=== PATIENT | female | born 1995 | race Caucasian/White ===

== ENCOUNTER 2017-08-03 18:16 | Emergency (ER) | payer BC ==
[2017-08-03] MEDS ORDERED: Ondansetron INJ* 2 MG/ML VIAL IV ONE (22:05)
[2017-08-03] MEDS ORDERED: Morphine INJ* 4 MG/ML 1 ML CARPUJECT IV ONE (22:05)
[2017-08-03 22:28] LABS: Hematocrit 40 % (35-47); Hemoglobin 13.5 g/dl (12.0-16.0); Mean Corpuscular HGB Conc 33 g/dl (31-36); Mean Corpuscular Hemoglobin 29 pg (27-31); Mean Corpuscular Volume 87 fL (80-97); Mean Platelet Volume 8 um3 (7.4-10.4); Red Blood Count 4.61 10^6/ul (4.0-5.4); Red Cell Distribution Width 13 % (10.5-15); White Blood Count 13.7 10^3/ul (3.5-10.8)
[2017-08-03 22:30] LABS: Albumin 4.4 g/dL (3.2-5.2); BUN/Creatinine Ratio 15.1 (8-20); Calcium 9.3 mg/dL (8.6-10.3); EGFR Non-African American 97.9 (>60); Globulin 2.9 g/dL (2-4); Potassium 3.4 mmol/L (3.5-5.0); Total Bilirubin 0.4 mg/dL (0.2-1.0); Total Protein 7.3 g/dL (6.4-8.9)
[2017-08-03 22:39] LABS: Urine Bacteria Absent (Absent); Urine Bilirubin Negative (Negative); Urine Glucose Negative (Negative); Urine Nitrite Negative (Negative)
[2017-08-03] MEDS ORDERED: cefTRIAXone(*) 1 GM in NS 0.9% 50 ML* 50 ML IVPB ONE (22:51)
[2017-08-03] MEDS ORDERED: NS 0.9% 1000 ML*IV.FLUID IV ONE (23:07)
[2017-08-03] MEDS ORDERED: HYDROcodone/ACETAMIN 5-325 MG* 1 TAB PO ONE (23:38)
[2017-08-04 01:23] VITALS: BP 128/58
--- NOTE | 2017-08-04 07:48 | RAD ---
HISTORY: Right flank pain during COMPARISONS: CT dated February 13, 2016 TECHNIQUE: Multiple transverse and longitudinal ultrasound images were obtained of the right kidney using grayscale and color Doppler imaging. FINDINGS: RIGHT KIDNEY: The right kidney is normal in shape, size, contour, and echogenicity. There is an extra renal pelvis on the right. There is no hydronephrosis or nephrolithiasis. The right kidney measures 13 x 4.2 x 5 cm. LEFT KIDNEY: No images are submitted of the left kidney. BLADDER: No images are submitted of the bladder. AORTA AND IVC: No images are submitted of the vasculature. RETROPERITONEUM: Unremarkable. OTHER: None. IMPRESSION: NO RIGHT HYDRONEPHROSIS OR NEPHROLITHIASIS
--- NOTE | 2017-08-04 07:52 | RAD ---
HISTORY: Right flank pain, , gestational age by dates of 6 weeks and 4 days. COMPARISONS: None relevant TECHNIQUE: Multiple transverse and longitudinal ultrasound images were obtained of the pelvis using grayscale, color Doppler, spectral Doppler imaging and M-Mode Doppler imaging using the endovaginal transducer. FINDINGS: UTERUS: The uterus is normal in shape, size, contour, and echotexture. GESTATION: There is a single live intrauterine gestation. The crown-rump length measures 0.51 cm for a gestational age of 6 weeks, 2 days. The DAVID is March 27, 2018. This is concordant with age by dates.. cardiac motion is detected at a rate of 1:15 beats per minute. Gross movement is not identified. anatomy cannot be assessed secondary to early dates. The amniotic fluid is qualitatively normal. There is a small subchorionic hemorrhage measuring approximately 0.5 x 0.3 x 0.3 cm. CUL-DE-SAC: There is no free fluid within the cul-de-sac. RIGHT OVARY: The right ovary measures 2.9 x 1.4 x 2 cm. The right ovarian waveforms are technically limited and are nondiagnostic. LEFT OVARY: The left ovary measures 4 x 2.7 x 3.2 cm. A corpus luteum is noted. Normal arterial and venous waveforms are identifiable within the ovary on spectral Doppler imaging. BLADDER: The bladder is not well visualized. IMPRESSION: 1. SINGLE LIVE INTRAUTERINE GESTATION AT 6 WEEKS AND 2 DAYS BY CROWN-RUMP LENGTH. 2. SMALL SUBCHORIONIC HEMORRHAGE. 3. NO SONOGRAPHIC FEATURES OF TORSION. PLEASE NOTE THAT PARTIAL OR INTERMITTENT TORSION MAY BE SONOGRAPHICALLY NORMAL.
--- NOTE | 2017-08-06 12:15 | ED ---
Mohan Arguello Thomas, scribed for Tab Medrano MD on 08/03/17 at 2217 . Back Pain - HPI Summary HPI Summary: The patient is a 22 y/o F who is 6/7 weeks and c/o back pain that began this AM and has worsened throughout the day. The pain radiates to her lower abdomen. She rates the pain 10/10. She has a Hx of kidney stones and herniated discs. She has a recent Hx of miscarriage of a previous at 4 -5 weeks. She has six positive home tests. She additionally c/o clear watery vaginal discharge and chills. She denies vaginal bleeding, dysuria, and constipation. She has not yet had an ultrasound performed for her current . PMHx: previously healthy. PSHx: appendectomy. SHx: no smoking, no alcohol use. LNMP 06/18/17. She is accompanied by her . - History of Current Complaint Chief Complaint: EDAbdPain Stated Complaint: BACK/ABD PAIN,6 1/2 WKS PREG Time Seen by Provider: 08/03/17 21:56 Hx Obtained From: Patient, Family/Rehabilitation Consultant - is present Hx Last Menstrual Period: 06/18/17 Onset/Duration: Lasting Hours - onset this AM, Still Present Timing: Constant Severity Currently: Severe Pain Intensity: 10 Pain Scale Used: 0-10 Numeric Aggravating Symptom(s): Nothing Alleviating Symptom(s): Nothing Associated Signs And Symptoms: Positive: Abdominal Pain, Other - Clear watery vaginal discharge, chills; NEGATIVE: vaginal bleeding, dysuria, constipation. Negative: Fever - Allergies/Home Medications Allergies/Adverse Reactions: Allergies Allergy/AdvReac Type Severity Reaction Status Date / Time Bee Venom Allergy Swelling Verified 05/01/16 13:58 Of Face,Lips,& Throat Latex Allergy rash, Verified 05/01/16 13:58 swelling Pineapple Allergy Swelling Verified 05/01/16 13:58 mushrooms Allergy Swelling Uncoded 05/01/16 13:58 walnuts Allergy Swelling Uncoded 05/01/16 13:58 PMH/Surg Hx/FS Hx/Imm Hx Previously Healthy: No Endocrine/Hematology History: Denies: Hx Diabetes, Hx Thyroid Disease Cardiovascular History: Denies: Hx Congestive Heart Failure, Hx Hypertension, Hx Pacemaker/ICD Respiratory History: Denies: Hx Asthma, Hx Chronic Obstructive Pulmonary Disease (COPD) GI History: Denies: Hx Ulcer History: Reports: Hx Kidney Infection Denies: Hx Renal Disease Sensory History: Denies: Hx Hearing Aid Neurological History: Reports: Hx Migraine Psychiatric History: Reports: Hx Anxiety, Hx Panic Disorder - PANIC ATTACKS - Surgical History Surgery Procedure, Year, and Place: APPENDIX- in 7th grade Infectious Disease History: No Infectious Disease History: Denies: Hx Clostridium Difficile, Hx Hepatitis, Hx Human Immunodeficiency Virus (HIV), Hx of Known/Suspected MRSA, Hx Shingles, Hx Tuberculosis, History Other Infectious Disease, Traveled Outside the [place] in Last 30 Days - Family History Known Family History: Positive: Other - Unsure whether or not there is a FHx of tubal pregnancies - Social History Lives: With Family Alcohol Use: None Hx Substance Use: No Substance Use Type: Reports: None Hx Tobacco Use: No Smoking Status (MU): Never Smoked Tobacco Review of Systems Positive: Chills. Negative: Fever Negative: Erythema - eyes Negative: Sore Throat Negative: Chest Pain Negative: Shortness Of Breath, Cough Negative: Abdominal Pain, Vomiting, Nausea, Other - NEGATIVE: constipation Positive: discharge - clear watery, other - Back pain onset this AM with radiation to lower abdomen; NEGATIVE: vaginal bleeding. Negative: dysuria, hematuria Negative: Myalgia, Edema Negative: Rash Neurological: Other - NEGATIVE: dizziness All Other Systems Reviewed And Are Negative: Yes Physical Exam - Summary Physical Exam Summary: Constitutional: Well-developed, Well-nourished, Alert. (-) Distressed Skin: Warm, Dry HENT: Normocephalic; Atraumatic Eyes: Conjunctiva normal Neck: Musculoskeletal ROM normal neck. (-) JVD, (-) Stridor, (-) Tracheal deviation Cardio: Rhythm regular, rate normal, Heart sounds normal; Intact distal pulses; The pedal pulses are 2+ and symmetric. Radial pulses are 2+ and symmetric. (-) Murmur Pulmonary/Chest wall: Effort normal. (-) Respiratory distress, (-) Wheezes, (-) Rales Abd: There is excuisite R CVA tenderness and R adnexal tenderness. Soft, (-) Distension, (-) Guarding, (-) Rebound Musculoskeletal: (-) Edema Lymph: (-) Cervical adenopathy Neuro: Alert, Oriented x3 Psych: Mood and affect Normal Triage Information Reviewed: Yes Vital Signs On Initial Exam: Initial Vitals Temp Pulse Resp BP Pulse Ox 97.1 F 84 20 145/68 100 08/03/17 18:32 08/03/17 18:32 08/03/17 18:32 08/03/17 18:32 08/03/17 18:32 Vital Signs Reviewed: Yes Diagnostics - Vital Signs Vital Signs Temp Pulse Resp BP Pulse Ox 08/03/17 20:29 97.6 F 74 16 148/70 100 08/03/17 18:32 97.1 F 84 20 145/68 100 - Laboratory Result Diagrams: 08/03/17 22:15 08/03/17 22:10 Lab Statement: Any lab studies that have been ordered have been reviewed, and results considered in the medical decision making process. - Additional Comments Diagnostic Additional Comments: US Renal. Interpreted by radiologist. Impression: normal US of the kidney. ED physician has reviewed this report and agrees. US . Interpreted by radiologist. Impression: live intrauterine gestation at 6 weeks, 2 days. ED physician has reviewed this report and agrees. Back Pain Course/Dx - Course Assessment/Plan: The patient is a 22 y/o F who is 6/7 weeks and c/o back pain that began this AM and has worsened throughout the day. The pain radiates to her lower abdomen. She rates the pain 10/10. She has a Hx of kidney stones and herniated discs. She has a recent Hx of miscarriage of a previous at 4-5 weeks. She has six positive home tests. She additionally c/o clear watery vaginal discharge and chills. She denies vaginal bleeding, dysuria, and constipation. She has not yet had an ultrasound performed for her current . PMHx: previously healthy. PSHx: appendectomy. SHx: no smoking, no alcohol use. LNMP 06/18/17. She is accompanied by her . The patient had excuisit R CVA tenderness and mild R adnexal tenderness. In the ED course the patient was given [place], Morhpine, Zofran, IV fluids, and Rocephin. US renal and US are negative for acute disease. I offered the patient IV Abx and admission to the hospital, although she would prefer to go home and be given oral Abx. I consulted with YEE Farfan, says that the patient can have follow up at the office tomorrow. The patikarmen is stable and will be discharged home with follow up tomorrow by YEE. She is diagnosed with pyelonephritis. She is stable. - Diagnoses Provider Diagnoses: Pyelonephritis - Provider Notifications Discussed Care Of Patient With: Dale Vargas Time Discussed With Above Provider: 23:50 Instructed by Provider To: Other - I consulted with YEE Farfan, regarding patient care and follow up. Discharge - Discharge Plan Condition: Stable Disposition: HOME Prescriptions: Cephalexin CAP* [Keflex CAP*] 500 mg PO QID #40 cap Patient Education Materials: Kidney Infection (ED) Referrals: Dale Vargas MD [Medical Doctor] - 1 Day Additional Instructions: Follow up at Dr. Vargas's office tomorrow. You need to call the office at 08:00 to follow up. Return to the emergency department for any new or worsening symptoms. The documentation as recorded by the Mohan souza Thomas accurately reflects the service I personally performed and the decisions made by , Tab Medrano MD.
--- NOTE | 2017-08-07 09:00 | PN ---
Progress Note - Progress Note Date of Service: 08/03/17 Note: 75,000-100,000 of e. coli growth on preliminary results treated for pyelonephritis with keflex. will wait for final culture sensitivity. no further action required.
== END 2017-08-04 01:23 | disposition home or self-care (01) ==
LOC: ED 18:16
DX: N12 Tubulo-interstitial nephritis, not specified as acute or chronic (principal); N89.8 Other specified noninflammatory disorders of vagina; R10.9 Unspecified abdominal pain; M54.9 Dorsalgia, unspecified; Z34.91 Encounter for supervision of normal pregnancy, unspecified, first trimester
CPT/HCPCS: 36415; 76775; 76815; 80053; 81003; 81015; 83690; 84702; 85025; 86141; 87077; 87086; 87186; 96374; 96375; 99283; J0696; J2270; J2405

== ENCOUNTER 2017-08-16 17:40 | Emergency (ER) | payer BC ==
--- NOTE | 2017-08-16 18:42 | UC ---
Complaint Female HPI - HPI Summary HPI Summary: 22 year old female who is 8 weeks . presents with lower back pain. - History Of Current Complaint Chief Complaint: UCGU Stated Complaint: BACK PAIN, FREQUENT URINATION Time Seen by Provider: 08/16/17 18:42 Hx Obtained From: Patient Hx Last Menstrual Period: 06/18/17 Onset/Duration: Sudden Onset Severity Initially: Moderate Severity Currently: Moderate Pain Scale Used: 0-10 Numeric - 5 - Allergies/Home Medications Allergies/Adverse Reactions: Allergies Allergy/AdvReac Type Severity Reaction Status Date / Time Bee Venom Allergy Swelling Verified 08/16/17 18:33 Of Face,Lips,& Throat Latex Allergy rash, Verified 08/16/17 18:33 swelling Pineapple Allergy Swelling Verified 08/16/17 18:33 mushrooms Allergy Swelling Uncoded 08/16/17 18:33 walnuts Allergy Swelling Uncoded 08/16/17 18:33 PMH/Surg Hx/FS Hx/Imm Hx Previously Healthy: Yes - Surgical History Surgical History: Yes Surgery Procedure, Year, and Place: APPENDIX- in 7th grade - Family History Known Family History: Positive: Unknown, Other - Unsure whether or not there is a FHx of tubal pregnancies - Social History Alcohol Use: None Substance Use Type: None Smoking Status (MU): Never Smoked Tobacco Review of Systems Constitutional: Negative Skin: Negative Eyes: Negative ENT: Negative Respiratory: Negative Cardiovascular: Negative Gastrointestinal: Negative Genitourinary: Negative Motor: Negative Neurovascular: Negative Musculoskeletal: Other: - lower back pain Neurological: Negative Psychological: Negative All Other Systems Reviewed And Are Negative: Yes Physical Exam Triage Information Reviewed: Yes Vital Signs: Initial Vital Signs Temp 36.2 C 08/16/17 18:30 Pulse 95 08/16/17 18:30 Resp 12 08/16/17 18:30 BP 133/74 08/16/17 18:30 Pulse Ox 100 08/16/17 18:30 Vital Signs Reviewed: Yes Eye Exam: Normal ENT Exam: Normal Dental Exam: Normal Neck exam: Normal Neck: Positive: 1 Respiratory Exam: Normal Cardiovascular Exam: Normal Abdominal Exam: Normal Musculoskeletal: Positive: Other: - lower back pain Neurological Exam: Normal Psychological Exam: Normal Skin Exam: Normal Complaint Female Dx - Differential Dx/Diagnosis Provider Diagnoses: lower back pain Discharge - Discharge Plan Condition: Stable Disposition: HOME Patient Education Materials: Low Back Strain (ED), Acute Low Back Pain (ED) Referrals: No Primary Care Phys,NOPCP [Primary Care Provider] -
[2017-08-16 20:07] VITALS: BP 114/68
== END 2017-08-16 20:14 | disposition home or self-care (01) ==
LOC: UCEAST 17:40
DX: O26.891 Other specified pregnancy related conditions, first trimester (principal); M54.5 Low back pain; R35.0 Frequency of micturition; Z3A.08 8 weeks gestation of pregnancy
CPT/HCPCS: 81003; 84702; 99212; G0463

== ENCOUNTER 2017-12-16 05:12 | Emergency (ER) | payer BC ==
[2017-12-16] MEDS ORDERED: Ondansetron ODT TAB* 4 MG PO ONE (05:27)
[2017-12-16] MEDS ORDERED: Hyoscyamine TAB* 0.125 MG PO ONE (05:31)
[2017-12-16] MEDS ORDERED: Ondansetron INJ* 2 MG/ML VIAL IV ONE (06:04)
[2017-12-16] MEDS ORDERED: diPHENhydraMINE IV* 50 MG/ML 1 ml VIAL (BENADRYL) IV ONE (06:04)
[2017-12-16] MEDS ORDERED: NS 0.9% 1000 ML* 1,000 ML IV ONE ×3 (06:04→06:51)
[2017-12-16] MEDS ORDERED: Dextrose 50% Syringe 50 ML* 25 GM/50 ML SYRINGE IV PUSH ONE (06:39)
[2017-12-16 06:52] LABS: ABS Basophils 0 10^3/ul (0-0.2); ABS Eosinophils 0.1 10^3/ul (0-0.6); ABS Lymphocytes 0.8 10^3/ul (1.0-4.8); ABS Monocytes 0.5 10^3/ul (0-0.8); ABS Neutrophils 13.1 10^3/ul (1.5-7.7); ABS Nucleated RBC 0 10^3/ul; Eosinophil % 0.7 % (0-6); Hematocrit 39 % (35-47); Hemoglobin 13.1 g/dl (12.0-16.0); Lymphocyte % 5.2 % (25-47); Mean Corpuscular HGB Conc 34 g/dl (31-36); Mean Corpuscular Hemoglobin 30 pg (27-31); Mean Corpuscular Volume 89 fL (80-97); Mean Platelet Volume 9 um3 (7.4-10.4); Nucleated Red Blood Cells % 0; Platelet Count 225 10^3/ul (150-450); Red Cell Distribution Width 13 % (10.5-15); White Blood Count 14.5 10^3/ul (3.5-10.8)
[2017-12-16 06:54] VITALS: BP 120/76
--- NOTE | 2017-12-16 07:06 | ED ---
Wilfrid Arguello Jennifer, scribed for Matt Gamez MD on 12/16/17 at 0541 . Abdominal Pain/Female - HPI Summary HPI Summary: The patient is a 29 year old female who presents with non-stop vomiting after christina food poisoning from a steak burrito at 19:00. She has vomited about 7-8 times since it began. She feels like she is going to have diarrhea but has not had it yet. She complains of a cough and subjective fever. Her stomach feels like a rock and there is stabbing and cramping pain. The patient is 26 weeks with her third child. - History of Current Complaint Chief Complaint: EDAbdPain Stated Complaint: VOMITING/ABD PAIN Time Seen by Provider: 12/16/17 05:22 Hx Obtained From: Patient Hx Last Menstrual Period: 06/18/17 Onset/Duration: Gradual Onset, Lasting Hours - since 19:00 last night, Still Present Timing: Constant Severity Initially: Severe Severity Currently: Severe Pain Intensity: 9 Pain Scale Used: 0-10 Numeric Location: Diffuse Radiates: No Character: Cramping, Other: - Stabbing, feels like a "rock" Aggravating Factor(s): Nothing Alleviating Factor(s): Nothing Associated Signs and Symptoms: Positive: Other: - Vomiting, feels like she's going to have diarrhea, cough, subjective fever Allergies/Adverse Reactions: Allergies Allergy/AdvReac Type Severity Reaction Status Date / Time MS Bee Venom [Bee Venom] Allergy Swelling Verified 08/28/17 08:40 Of Face,Lips,& Throat MS Latex [Latex] Allergy rash, Verified 08/28/17 08:40 swelling MS Pineapple [Pineapple] Allergy Swelling Verified 08/28/17 08:40 mushrooms Allergy Swelling Uncoded 08/28/17 08:40 walnuts Allergy Swelling Uncoded 08/28/17 08:40 PMH/Surg Hx/FS Hx/Imm Hx Endocrine/Hematology History: Denies: Hx Diabetes, Hx Thyroid Disease Cardiovascular History: Denies: Hx Congestive Heart Failure, Hx Hypertension, Hx Pacemaker/ICD Respiratory History: Denies: Hx Asthma, Hx Chronic Obstructive Pulmonary Disease (COPD) GI History: Denies: Hx Ulcer History: Reports: Hx Kidney Infection Denies: Hx Renal Disease Sensory History: Denies: Hx Hearing Aid Neurological History: Reports: Hx Migraine Psychiatric History: Reports: Hx Anxiety, Hx Panic Disorder - PANIC ATTACKS - Surgical History Surgery Procedure, Year, and Place: APPENDIX- in 7th grade Infectious Disease History: No Infectious Disease History: Denies: Hx Clostridium Difficile, Hx Hepatitis, Hx Human Immunodeficiency Virus (HIV), Hx of Known/Suspected MRSA, Hx Shingles, Hx Tuberculosis, History Other Infectious Disease, Traveled Outside the [place] in Last 30 Days - Family History Known Family History: Positive: Unknown, Other - Unsure whether or not there is a FHx of tubal pregnancies - Social History Alcohol Use: None Hx Substance Use: No Substance Use Type: Reports: None Hx Tobacco Use: No Smoking Status (MU): Never Smoked Tobacco Review of Systems Positive: Fever Positive: Abdominal Pain, Vomiting, Diarrhea - feels like she's going to have it All Other Systems Reviewed And Are Negative: Yes Physical Exam - Summary Physical Exam Summary: Appearance: Well appearing, no pain distress Skin: warm, dry, reflects adequate perfusion Head/face: normal Eyes: EOMI, BETTY ENT: normal Neck: supple, non-tender Respiratory: CTA, breath sounds present Cardiovascular: RRR, pulses symmetrical Abdomen: non-tender, soft. Fundus is palpable 5 cm above the umbilicus. Bowel: hypoactive bowel sounds. Musculoskeletal: normal, strength/ROM intact Neuro: normal, sensory motor intact, A&Ox3 Triage Information Reviewed: Yes Vital Signs On Initial Exam: Initial Vitals Temp Pulse Resp BP Pulse Ox 96.6 F 105 18 136/75 98 12/16/17 05:16 12/16/17 05:16 12/16/17 05:16 12/16/17 05:16 12/16/17 05:16 Vital Signs Reviewed: Yes Diagnostics - Vital Signs Vital Signs Temp Pulse Resp BP Pulse Ox 12/16/17 05:16 96.6 F 105 18 136/75 98 - Laboratory Lab Results: Lab Results 12/16/17 12/16/17 Range/Units 06:30 06:36 WBC 14.5 H (3.5-10.8) 10^3/ul RBC 4.40 (4.0-5.4) 10^6/ul Hgb 13.1 (12.0-16.0) g/dl Hct 39 (35-47) % MCV 89 (80-97) fL MCH 30 (27-31) pg MCHC 34 (31-36) g/dl RDW 13 (10.5-15) % Plt Count 225 (150-450) 10^3/ul MPV 9 (7.4-10.4) um3 Neut % (Auto) 90.2 H (38-83) % Lymph % (Auto) 5.2 L (25-47) % [place] % (Auto) 3.8 (1-9) % Eos % (Auto) 0.7 (0-6) % Baso % (Auto) 0.1 (0-2) % Absolute Neuts (auto) 13.1 H (1.5-7.7) 10^3/ul Absolute Lymphs (auto) 0.8 L (1.0-4.8) 10^3/ul Absolute Monos (auto) 0.5 (0-0.8) 10^3/ul Absolute Eos (auto) 0.1 (0-0.6) 10^3/ul Absolute Basos (auto) 0 (0-0.2) 10^3/ul Absolute Nucleated RBC 0 10^3/ul Nucleated RBC % 0 POC Glucose (mg/dL) 87 (70-100) mg/dL Result Diagrams: 18 06:36 18 06:36 Lab Statement: Any lab studies that have been ordered have been reviewed, and results considered in the medical decision making process. Re-Evaluation - Re-Evaluation First Eval Re-Evaluation Time: 06:29 Change: Unchanged Comment: Patient placed on monitor. Decreased variability of heart tones but no contractions. Patient given Benadryl. Second Eval Re-Evaluation Time: 06:55 Change: Improved Comment: The patient feels much better. The baby's variability is still questionable. Abdominal Pain Fem Course/Dx - Course Course Of Treatment: Pt and her have n/v and abd cramping after sharing burrito. Sx were abrupt and simultaneous for the both of them. Pt is 26wk preg. Visualized with bedside US, decreased activity. L&D came and monitored pt. NO contractions but HT variability is decreased. IV placed, labs drawn and pt given IV meds after she vomited during admin of ODT meds. Sugar added to IV. Had given benadryl IV prior to being aware of decreased variability. Pt will be cont to hydrated. Call to OB after 7a. Case discussed and signed out to Dr. Waddell. - Diagnoses Provider Diagnoses: Food poisoning, Second trimester , heart rate nonreactive Discharge - Discharge Plan Condition: Guarded Disposition: OTHER Discharge Disposition Comment: Sign out to Dr. Fang pending variability of fetus heart. Referrals: No Primary Care Phys,NOPCP [Primary Care Provider] - The documentation as recorded by the Wilfrid souza Jennifer accurately reflects the service I personally performed and the decisions made by me, Matt Gamez MD.
--- NOTE | 2017-12-16 13:39 | ED ---
Syed Arguello Julia, scribed for Zach Fang MD on 12/16/17 at 0722 . Progress - Progress Note Progress Note: This patient is signed out from Dr. Gamez at shift change, awaiting to monitor heart rate and disposition.. The patient has nausea and cramping as of reevaluation at 710am. She is being hydrated. heart rate is 130s. There is question of variability brought up by Dr Gamez on the monitor strip. I have contacted Dr Parker the OB /[employer]SULTANT rn on site for the group and he states at 26 weeks there is not to be expected variability. He states he will review the strips. He recommends continued symptom management at this point. And IV hydration. 800am Dr Parker present here in the ER and went and saw the patient and reviewed the monitor strips. He feels as long as the patient can keep clear liquids down she can go home. The patient has been able to tolerate clears at this point and she wants to go home now. Dr Parker recommends Zofran ODT for nausea medicine. Re-Evaluation - Re-Evaluation First Eval Re-Evaluation Time: 06:29 Change: Unchanged Comment: Patient placed on monitor. Decreased variability of heart tones but no contractions. Patient given Benadryl. Second Eval Re-Evaluation Time: 06:55 Change: Improved Comment: The patient feels much better. The baby's variability is still questionable. Course/Dx - Course Course Of Treatment: Pt and her have n/v and abd cramping after sharing burrito. Sx were abrupt and simultaneous for the both of them. Pt is 26wk preg. Visualized with bedside US, decreased activity. L&D came and monitored pt. NO contractions but HT variability is decreased. IV placed, labs drawn and pt given IV meds after she vomited during admin of ODT meds. Sugar added to IV. Had given benadryl IV prior to being aware of decreased variability. Pt will be cont to hydrated. Call to OB after 7a. Case discussed and signed out to Dr. Waddell. - Diagnoses Provider Diagnoses: Food poisoning, Second trimester , heart rate nonreactive The documentation as recorded by the Syed souza Julia accurately reflects the service I personally performed and the decisions made by , Zach Fang MD.
== END 2017-12-16 08:41 | disposition home or self-care (01) ==
LOC: ED 05:12
DX: O26.892 Other specified pregnancy related conditions, second trimester (principal); T62.8X1A Toxic effect of other specified noxious substances eaten as food, accidental (unintentional), initial encounter; R11.10 Vomiting, unspecified; O36.8320 Maternal care for abnormalities of the fetal heart rate or rhythm, second trimester, not applicable or unspecified; Z3A.26 26 weeks gestation of pregnancy
CPT/HCPCS: 36415; 80053; 85025; 96361; 96374; 96375; 99283; A9270-GY; J1200; J2405

== ENCOUNTER 2018-03-30 07:22 | Inpatient (IN) | payer BC, MEDICAID ==
[2018-03-30] MEDS ORDERED: Oxytocin in LR* 20 UNITS/1,000 ML BAG IVPB SCH ×2 (08:00→16:00)
[2018-03-30 08:37] LABS: ABS Basophils 0 10^3/ul (0-0.2); ABS Eosinophils 0.1 10^3/ul (0-0.6); ABS Lymphocytes 1.3 10^3/ul (1.0-4.8); ABS Monocytes 0.3 10^3/ul (0-0.8); ABS Neutrophils 5.5 10^3/ul (1.5-7.7); ABS Nucleated RBC 0 10^3/ul; Hematocrit 34 % (35-47); Hemoglobin 11.2 g/dl (12.0-16.0); Lymphocyte % 18.4 % (25-47); Mean Corpuscular HGB Conc 33 g/dl (31-36); Mean Corpuscular Hemoglobin 28 pg (27-31); Mean Corpuscular Volume 84 fL (80-97); Mean Platelet Volume 8.9 um3 (7.4-10.4); Nucleated Red Blood Cells % 0.1; Platelet Count 233 10^3/ul (150-450); Red Cell Distribution Width 14 % (10.5-15); White Blood Count 7.3 10^3/ul (3.5-10.8)
--- NOTE | 2018-03-30 10:52 | HP ---
General Information - General Information Maternal Age: 23 Grav: 3 Para: 2 SAB: 0 IEA: 0 Estimated Due Date: 03/25/18 Determined By: LMP Gestational Age in Weeks and Days: 40 Weeks and 5 Days Maternal Blood Type and Rh: A Positive - Results this Serology/RPR Result: Non-Reactive Rubella Result: Immune HBsAg Result: Negative HIV Result: Negative GBS Culture Result: Negative Past Medical History Delivery History: Hx Uncomplicated Vaginal Delivery Pertinent Past Medical History: See Records Past Medical History Comment: obesity Pertinent Past Surgical History: None Pertinent Family History: See Records - Antepartal Records Antepartal Records: Reviewed, Uncomplicated Review of Systems Constitutional: Comfortable Gastrointestinal: No Nausea/Vomiting Genitourinary: No Bleeding, No Leaking Fluid Musculoskeletal: No Complaint Neurological: No Headache Movement: Normal Exam Allergies/Adverse Reactions: Allergies bee venom protein (honey bee) Allergy (Verified 12/16/17 08:12) Swelling Of Face,Lips,& Throat latex Allergy (Verified 12/16/17 08:12) Rash mushroom Allergy (Verified 12/16/17 08:55) Swelling pineapple Allergy (Verified 12/16/17 08:12) Swelling walnut Allergy (Verified 12/16/17 08:55) Swelling Lab Values - Entire Visit: Laboratory Tests 03/30/18 03/30/18 08:15 08:15 WBC 7.3 RBC 4.00 Hgb 11.2 L Hct 34 L MCV 84 MCH 28 MCHC 33 RDW 14 Plt Count 233 MPV 8.9 Neut % (Auto) 75.7 Lymph % (Auto) 18.4 L [place] % (Auto) 4.4 Eos % (Auto) 1.0 Baso % (Auto) 0.5 Absolute Neuts (auto) 5.5 Absolute Lymphs (auto) 1.3 Absolute Monos (auto) 0.3 Absolute Eos (auto) 0.1 Absolute Basos (auto) 0 Absolute Nucleated RBC 0 Nucleated RBC % 0.1 Blood Type A Positive Antibody Screen Negative - Measurements Height: 5 ft 9 in Weight: 252 lb Weight in lbs: 252 Body Mass Index (BMI): 37.2 Pre- Weight: 240 lb Weight Gained This : 12 lbs and 0 ozs Targeted Exam Findings See L&D Outpatient Visit Provider Note for Findings: N/A Cervical Exam: 1cm Effacement: 70% Station: -2 Presenting Part: Vertex Membrane Status: AROM EFM Findings - External Monitor Findings Baseline Heart Rate: 135 External Monitor Findings: Accelerations Present, Variability Moderate Contractions: None Assessment/Plan - Reason for Visit Reason for Visit: 40 + weeks for induction for post dates - Plan Plan: Induction
[2018-03-30] MEDS ORDERED: OBEPIDURAL* 250 ML EPIDURAL ONE (13:59)
[2018-03-30] MEDS ORDERED: Phenylephrine IV* 40 MCG/ML 10 ML SYRINGE IV PUSH PRN ×2 (14:52)
[2018-03-30] MEDS ORDERED: Sodium Citrate/Citric Acid* 15 ML UDC PO PRN (14:52)
[2018-03-30] MEDS ORDERED: OBEPIDURAL* 250 ML EPIDURAL SCH (15:00)
[2018-03-30] MEDS ORDERED: Acetaminophen TAB* 325 MG PO PRN (15:27)
[2018-03-30] MEDS ORDERED: Glycerin ADULT SUPP PR PRN (15:27)
[2018-03-30] MEDS ORDERED: Dibucaine 1% 28.35 GM TUBE PR PRN (15:27)
[2018-03-30] MEDS ORDERED: Witch Hazel PAD* JAR TOPICAL PRN (15:27)
[2018-03-30] MEDS ORDERED: Simethicone TAB* 80 MG TAB.CHEW PO SCH (17:30)
[2018-03-30] MEDS: Docusate CAP* 100 MG PO SCH (22:35)
[2018-03-31] MEDS: Ibuprofen TAB* 600 MG PO PRN ×2 (03:47→16:38)
[2018-03-31 06:31] LABS: ABS Basophils 0.1 10^3/ul (0-0.2); ABS Eosinophils 0.1 10^3/ul (0-0.6); ABS Lymphocytes 1.7 10^3/ul (1.0-4.8); ABS Monocytes 0.4 10^3/ul (0-0.8); ABS Neutrophils 8.2 10^3/ul (1.5-7.7); ABS Nucleated RBC 0 10^3/ul; Eosinophil % 1.2 % (0-6); Hematocrit 32 % (35-47); Hemoglobin 10.6 g/dl (12.0-16.0); Lymphocyte % 16.4 % (25-47); Mean Corpuscular HGB Conc 33 g/dl (31-36); Mean Corpuscular Hemoglobin 28 pg (27-31); Mean Corpuscular Volume 84 fL (80-97); Mean Platelet Volume 8.9 um3 (7.4-10.4); Nucleated Red Blood Cells % 0.1; Platelet Count 195 10^3/ul (150-450); Red Blood Count 3.83 10^6/ul (4.0-5.4); Red Cell Distribution Width 14 % (10.5-15); White Blood Count 10.6 10^3/ul (3.5-10.8)
[2018-03-31 07:40] VITALS: BP 132/67
[2018-03-31] MEDS ORDERED: Ferrous Gluconate TAB* 324 MG TAB PO SCH (09:00)
[2018-03-31] MEDS: Docusate CAP* 100 MG PO SCH (16:37)
== END 2018-03-31 18:25 | disposition home or self-care (01) | DRG 560 ==
LOC: MCHOBOUT 07:22 → MCHOB 07:48
PROVIDERS: ADMIT Obstetrics & Gynecology; ATTEND Obstetrics & Gynecology
PROC: 10907ZC Drainage of Amniotic Fluid, Therapeutic from Products of Conception, Via Natural or Artificial Opening (ICD-10-PCS; principal; 2018-03-30)
PROC: 3E033VJ Introduction of Other Hormone into Peripheral Vein, Percutaneous Approach (ICD-10-PCS; 2018-03-30)
PROC: 10E0XZZ Delivery of Products of Conception, External Approach (ICD-10-PCS; 2018-03-30)
PROC: 4A1HX4Z Monitoring of Products of Conception, Cardiac Electrical Activity, External Approach (ICD-10-PCS; 2018-03-30)
DX: O48.0 Post-term pregnancy (principal); O99.214 Obesity complicating childbirth; O62.3 Precipitate labor; Z3A.40 40 weeks gestation of pregnancy; Z37.0 Single live birth; Z91.030 Bee allergy status; Z91.040 Latex allergy status; Z91.018 Allergy to other foods; Z87.442 Personal history of urinary calculi; Z68.37 Body mass index [BMI] 37.0-37.9, adult
CPT/HCPCS: 36415; 85025; 86850; 86900; 86901; A9270-GY

== ENCOUNTER 2019-07-27 05:00 | Emergency (ER) | payer MEDICAID, OTHER ==
[2019-07-27] MEDS ORDERED: Ibuprofen TAB* 600 MG PO ONE (05:25)
[2019-07-27] MEDS ORDERED: diPHENhydraMINE PO* 25 MG PO ONE (05:25)
--- NOTE | 2019-07-27 05:29 | ED ---
Skin Complaint - HPI Summary HPI Summary: Pt is a 24 y/o F presenting to the ED with a chief complaint of a spider bite. She states she was woken up by the spider biting her around 0430, and it is now stinging and pruritic. She denies SOB, vomiting, diarrhea. - History of Current Complaint Chief Complaint: EDGeneral Time Seen by Provider: 07/27/19 05:13 Stated Complaint: SPIDER BITE PER PT Hx Obtained From: Patient Hx Last Menstrual Period: 06/18/17 Onset/Duration: Started Hours Ago, Still Present Skin Exposure Onset/Duration: Hours Ago Timing: Constant, Lasting Hours Onset Severity: Moderate Current Severity: Moderate Pain Intensity: 7 Pain Scale Used: 0-10 Numeric Skin Location: Arm - R forearm Character: Pruritus, Redness Aggravating Symptom(s): Other: - spider bite Alleviating Symptom(s): Nothing Associated Signs & Symptoms: Rash Related History: Insect Bite/Sting - Allergy/Home Medications Allergies/Adverse Reactions: Allergies Allergy/AdvReac Type Severity Reaction Status Date / Time bee venom protein (honey bee) Allergy Swelling Verified 07/27/19 05:05 Of Face,Lips,& Throat latex Allergy Rash Verified 07/27/19 05:05 mushroom Allergy Swelling Verified 07/27/19 05:05 pineapple Allergy Swelling Verified 07/27/19 05:05 walnut Allergy Swelling Verified 07/27/19 05:05 PMH/Surg Hx/FS Hx/Imm Hx Previously Healthy: Yes Endocrine/Hematology History: Denies: Hx Diabetes, Hx Thyroid Disease Cardiovascular History: Denies: Hx Congestive Heart Failure, Hx Hypertension, Hx Pacemaker/ICD Respiratory History: Denies: Hx Asthma, Hx Chronic Obstructive Pulmonary Disease (COPD) GI History: Denies: Hx Ulcer History: Reports: Hx Kidney Infection Denies: Hx Renal Disease Sensory History: Denies: Hx Hearing Aid Neurological History: Reports: Hx Migraine Psychiatric History: Reports: Hx Anxiety, Hx Panic Disorder - PANIC ATTACKS - Surgical History Surgery Procedure, Year, and Place: APPENDIX- in 7th grade Infectious Disease History: No Infectious Disease History: Denies: Hx Clostridium Difficile, Hx Hepatitis, Hx Human Immunodeficiency Virus (HIV), Hx of Known/Suspected MRSA, Hx Shingles, Hx Tuberculosis, History Other Infectious Disease, Traveled Outside the [place] in Last 30 Days - Family History Known Family History: Positive: Other - Unsure whether or not there is a FHx of tubal pregnancies - Social History Alcohol Use: None Hx Substance Use: No Substance Use Type: Reports: None Hx Tobacco Use: No Smoking Status (MU): Never Smoked Tobacco Review of Systems Negative: Shortness Of Breath Negative: Vomiting, Diarrhea Positive: Other - pruritic, raised area of spider bite All Other Systems Reviewed And Are Negative: Yes Physical Exam - Summary Physical Exam Summary: Constitutional: Well-developed, Well-nourished, Alert. (-) Distressed Skin: Warm, Dry. Small area of raised pruritic rash to R forearm HENT: Normocephalic; Atraumatic Eyes: Conjunctiva normal Neck: Musculoskeletal ROM normal neck. (-) JVD, (-) Stridor, (-) Tracheal deviation Cardio: Rhythm regular, rate normal, Heart sounds normal; Intact distal pulses; Radial pulses are 2+ and symmetric. (-) Murmur Pulmonary/Chest wall: Effort normal. (-) Respiratory distress, (-) Wheezes, (-) Rales Abd: Soft, (-) tenderness, (-) Distension, (-) Guarding, (-) Rebound Musculoskeletal: (-) Edema Lymph: (-) Cervical adenopathy Neuro: Alert, Oriented x3 Psych: Mood and affect Normal Triage Information Reviewed: Yes Vital Signs On Initial Exam: Initial Vitals Temp Pulse Resp BP Pulse Ox 97.0 F 78 16 131/82 99 07/27/19 05:00 07/27/19 05:00 07/27/19 05:00 07/27/19 05:00 07/27/19 05:00 Vital Signs Reviewed: Yes Procedures - Sedation Patient Received Moderate/Deep Sedation with Procedure: No Diagnostics - Vital Signs Vital Signs Temp Pulse Resp BP Pulse Ox 07/27/19 05:00 97.0 F 78 16 131/82 99 - Laboratory Lab Statement: Any lab studies that have been ordered have been reviewed, and results considered in the medical decision making process. Course/Dx - Course Course Of Treatment: Patient is here after a spider bite. Patient has no evidence of anaphylaxis. Patient has a small local reaction to the bite. Patient is treated with Benadryl, ibuprofen, ice. - Diagnoses Provider Diagnoses: Spider bite Discharge ED - Sign-Out/Discharge Documenting (check all that apply): Patient Departure - Discharge Plan Condition: Stable Disposition: HOME Patient Education Materials: Insect Bite or Sting (ED) Referrals: [facility] [Outside] Additional Instructions: Please take Benadryl to alleviate the itching/redness, Ibuprofen for the pain, and you can also ice the area to reduce the inflammation. Come back to the emergency department with any new or worsening symptoms, including fever, vomiting, or diarrhea. - Billing Disposition and Condition Condition: STABLE Disposition: Home - Attestation Statements Document Initiated by Scribe: Yes Documenting Scribe: Heide Victoria Provider For Whom Slime is Documenting (Include Credential): Denys Vazquez MD. Scribe Attestation: Heide Arguello, scribed for Denys Vazquez MD. on 07/27/19 at 0612. Scribe Documentation Reviewed: Yes Provider Attestation: The documentation as recorded by the scribe, Heide Victoria accurately reflects the service I personally performed and the decisions made by , Denys Vazquez MD. Status of Scribe Document: Viewed
[2019-07-27 05:38] VITALS: BP 120/56
== END 2019-07-27 05:30 | disposition home or self-care (01) ==
LOC: ED 05:00
DX: T63.301A Toxic effect of unspecified spider venom, accidental (unintentional), initial encounter (principal); Y92.9 Unspecified place or not applicable; F41.9 Anxiety disorder, unspecified; Z91.040 Latex allergy status
CPT/HCPCS: 99282; A9270-GY

== ENCOUNTER 2019-09-11 09:54 | Emergency (ER) | payer OTHER ==
[2019-09-11 10:30] VITALS: BP 131/83
--- NOTE | 2019-09-11 11:12 | UC ---
Throat Pain/Nasal Juan HPI - HPI Summary HPI Summary: Patient presents to urgent care stating 5 days progressive head congestion now with left ear pain cough productive of yellow sputum. Her children were sick last week and now she has it. Patient has taken a couple [id number] medications with little improvement. Patient is short of breath. Patient states she's had a tactile fever and chills. No nausea vomiting but decreased appetite. No abdominal pain. Diarrhea. No vaginal discharge, itching, odor. Patient is not breast feeding. Patient's medications at this visit. - History of Current Complaint Chief Complaint: UCRespiratory Stated Complaint: CHEST CONGESTION,COUGH Time Seen by Provider: 09/11/19 10:30 Hx Obtained From: Patient Hx Last Menstrual Period: 08/28/19 Severity: Moderate Pain Intensity: 7 - Allergies/Home Medications Allergies/Adverse Reactions: Allergies Allergy/AdvReac Type Severity Reaction Status Date / Time bee venom protein (honey bee) Allergy Swelling Verified 09/11/19 10:27 Of Face,Lips,& Throat cephalexin Allergy Difficulty Verified 09/11/19 10:27 Breathing latex Allergy Rash Verified 09/11/19 10:27 mushroom Allergy Swelling Verified 09/11/19 10:27 pineapple Allergy Swelling Verified 09/11/19 10:27 walnut Allergy Swelling Verified 09/11/19 10:27 PMH/Surg Hx/FS Hx/Imm Hx Previously Healthy: Yes - Surgical History Surgical History: Yes Surgery Procedure, Year, and Place: APPENDIX- in 7th grade - Family History Known Family History: Positive: Other, Non-Contributory - Social History Occupation: Employed Full-time - language Lives: With Family Alcohol Use: Rare Substance Use Type: None Smoking Status (MU): Never Smoked Tobacco - Immunization History Most Recent Influenza Vaccination: 08/24/17 Most Recent Pneumonia Vaccination: none Review of Systems All Other Systems Reviewed And Are Negative: Yes Constitutional: Positive: Fever - tactile Skin: Positive: Negative Eyes: Positive: Negative ENT: Positive: Sore Throat, Ear Ache, Nasal Discharge, Sinus Congestion Respiratory: Positive: Cough Cardiovascular: Positive: Negative Gastrointestinal: Positive: Negative Physical Exam - Summary Physical Exam Summary: Vital Signs Reviewed: Yes A+Ox3, no distress, congested Eyes: Conjunctiva Clear, BETTY. EOM intact and full ENT: Hearing grossly normal left TM ++ fluid, erythema, retracted, right TM + fluid turbinates inflammed and boggy, + PND, mmoist, uvula midline, no exudate , no erythema Neck: Positive: Supple Respiratory: Positive: No respiratory distress, No accessory muscle use + CTA throughout no w/r, mild cough Cardiovascular: RRR nl s1, s2 no m/r CBT <2 sec abd soft + BS nt/nd no guarding, no distension Musculoskeletal Exam: WEATHERS x 4 without difficulty Strength Intact, ROM Intact Neurological: Positive: Alert, + sensation throughout Psychological: Positive: Normal Response To examiner Skin: Positive: no rash, no ecchymosis present Triage Information Reviewed: Yes Vital Signs: Initial Vital Signs Temp 97 F 09/11/19 10:27 Pulse 84 09/11/19 10:27 Resp 16 09/11/19 10:27 BP 131/83 09/11/19 10:27 Pulse Ox 100 09/11/19 10:27 Throat Pain/Nasal Course/Dx - Course Course Of Treatment: Patient presents to urgent care for evaluation of progressive headache congestion sore throat ear pain postnasal drip and cough. Patient states her children were sick about 10 days ago and she can start his get sick last week. Patient has taken a few [id number] medications with little improvement. Patient reports tactile fever. On exam vital signs are stable. Patient's exam consistent with left otitis media as well as rhinosinusitis. Recommend patient was steroids and antibiotics. Secretion precautions. Return precautions discussed. Patient states understanding and agreement with plan. 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 - Differential Dx/Diagnosis Provider Diagnosis: Rhinosinusitis, Otitis media Discharge ED - Sign-Out/Discharge Documenting (check all that apply): Patient Departure All imaging exams completed and their final reports reviewed: No Studies - Discharge Plan Condition: Stable Disposition: HOME Prescriptions: DOXYcycline CAP(*) [DOXYcycline 100MG CAP(*)] 100 mg PO BID #20 cap Fluticasone NASAL SPRAY 50MCG* [Flonase NASAL SPRAY 50MCG*] 2 spray BOTH NARES DAILY #1 btl Patient Education Materials: Rhinosinusitis (ED) Forms: *Work Release Referrals: [facility] [Outside] No Primary Care Phys,NOPCP [Primary Care Provider] - Additional Instructions: - Stay well hydrated. Drink plenty of non-alcoholic, non-caffinated beverages. - Alternate ibuprofen (Advil, Motrin) 600mg and Tylenol every 3 hours for pain or fever. Take with food. Do NOT take for more than 4-5 days. - These infections are spread by secretions - do NOT share eating or drinking utensils - clean items you share with other people such as cell phones, computer mouse, TV remote, computer tablets,etc. Once you have been antibiotics for 2 days, change your toothbrush and your pillowcase. - get plenty of restful sleep - humidify the air in the room where you sleep - boil water, run a hot steam shower, vaporizer, cups of water by heat register - okay to take over the counter decongestant and cough medication - use nasal spray as prescribed - take antibiotics as prescribed until gone - contact your doctor or return with questions or concerns - Billing Disposition and Condition Condition: STABLE Disposition: Home
== END 2019-09-11 11:38 | disposition home or self-care (01) ==
LOC: UCCORT 09:54
DX: H66.92 Otitis media, unspecified, left ear (principal); J32.9 Chronic sinusitis, unspecified; R06.02 Shortness of breath; Z91.030 Bee allergy status; Z88.1 Allergy status to other antibiotic agents; Z91.040 Latex allergy status; Z91.018 Allergy to other foods
CPT/HCPCS: 99212; G0463